=== PATIENT | female | born 1985 | race American Indian/Alaskan Native ===

== ENCOUNTER 2017-07-10 16:40 | Emergency (ER) | payer MEDICAID, OTHER ==
[2017-07-10 16:40] VITALS: BMI 38.9
[2017-07-10 16:59] VITALS: RESP 20
[2017-07-10] MEDS ORDERED: Sodium Chloride 0.9% 1,000 ML IV ONE (17:22)
[2017-07-10 17:47] LABS: BASO # 0.1 K/uL (0.0-0.2); BASO % 0.6 % (0.0-2.0); EOS # 0.1 K/uL (0.0-0.7); EOS % 0.9 % (0.0-4.0); HEMATOCRIT 32.6 % (34.0-47.0); LYMPH # 4.2 K/uL (1.0-4.3); LYMPH % 26.6 % (20.0-40.0); MEAN CELL VOLUME 78.1 fL (81.0-99.0); MEAN CORPUSCULAR HEMOGLOBIN 25.9 pg (27.0-31.0); MEAN CORPUSCULAR HGB CONC 33.2 g/dL (33.0-37.0); MEAN PLATELET VOLUME 8.4 fL (7.2-11.7); RED CELL DISTRIBUTION WIDTH 16.7 % (11.5-14.5); WHITE BLOOD COUNT 15.7 K/uL (4.8-10.8)
[2017-07-10 17:56] LABS: CHLORIDE 98 mmol/L (98-107); SODIUM 131 mmol/L (132-148)
[2017-07-10 17:58] LABS: GFR AFRICAN-AMERICAN > 60
[2017-07-10 17:59] LABS: ALKALINE PHOSPHATASE 71 U/L (38-126); ALT/SGPT 26 U/L (9-52); AST/SGOT 18 U/L (14-36); BILIRUBIN,TOTAL 0.6 mg/dL (0.2-1.3); BLOOD UREA NITROGEN 6 mg/dL (7-17); CARBON DIOXIDE 23 mmol/L (22-30); GLUCOSE,RANDOM 105 mg/dL (65-105); TOTAL PROTEIN 7.4 g/dL (6.3-8.3)
--- NOTE | 2017-07-10 18:31 | C.PDOC ---
History Of Present Illness 32 yr old female presents to the ER with complaints of intermittent vomiting, diarrhea and mild superpubic pain for the past 1 week. Patient states the vomiting and diarrhea are non bilious and non bloody. Patient is a , states LMP was approximately March 12. Patient states she has a history of elevated blood pressure towards the end of her last . Patient also reports of mild headache, which she took Tylenol for last night. Patient states she has been eating and drinking normally. Denies fever, chills, chest pain, SOB , dysuria, incontinence, hematuria, blood in stool, weakness or numbness. Time Seen by Provider: 07/10/17 17:09 Chief Complaint (Nursing): GI Problem History Per: Patient History/Exam Limitations: no limitations Onset/Duration Of Symptoms: Days Past Medical History Reviewed: Historical Data, Nursing Documentation, Vital Signs Vital Signs: Last Vital Signs Temp 98 F 07/10/17 20:54 Pulse 74 07/10/17 20:54 Resp 20 07/10/17 20:54 BP 137/62 07/10/17 20:54 Pulse Ox 96 07/10/17 20:54 - Medical History PMH: Asthma, HTN (gestational) - [facility] Procedures APPLICATION OF SPLINT (06/02/07) DELIVERY OF PRODUCTS OF CONCEPTION, EXTERNAL APPROACH (08/27/16) Family History: States: No Known Family Hx - Social History Hx Tobacco Use: No Hx Alcohol Use: No Hx Substance Use: No - Immunization History Hx Tetanus Toxoid Vaccination: No Hx Influenza Vaccination: No Hx Pneumococcal Vaccination: No Review Of Systems Except As Marked, All Systems Reviewed And Found Negative. Constitutional: Negative for: Fever, Chills Cardiovascular: Negative for: Chest Pain Respiratory: Negative for: Shortness of Breath Gastrointestinal: Positive for: Nausea, Vomiting, Abdominal Pain (Superpubic), Diarrhea Genitourinary: Negative for: Dysuria, Incontinence, Hematuria Neurological: Positive for: Headache (Mild). Negative for: Weakness, Numbness Physical Exam - Physical Exam Appears: Non-toxic, No Acute Distress Skin: Warm, Dry, No Rash Head: Atraumatic, Normacephalic Oral Mucosa: Moist Chest: Symmetrical, No Tenderness Cardiovascular: Rhythm Regular, No Murmur Respiratory: Normal Breath Sounds, No Rales, No Rhonchi, No Wheezing Gastrointestinal/Abdominal: Soft, Tenderness (Minimal superpubic), No Guarding, No Rebound Extremity: Normal ROM, No Swelling Neurological/Psych: Oriented x3, Normal Speech, Normal Motor ED Course And Treatment - Laboratory Results Result Diagrams: 07/10/17 17:43 07/10/17 17:43 O2 Sat by Pulse Oximetry: 99 (RA) Pulse Ox Interpretation: Normal Against Medical Advice - AMA Patient Left Against Medical Advice: The patient declines admission to the hospital and wishes to leave the Emergency Department. This action is against my medical advice. This decision was made with informed refusal. The patient was told that admission to the hospital is necessary. Explanation of the reasons why were discussed. The risks of leaving were explained to the patient and include, but are not limited to, worsening of known or currently unknown conditions, permanent disability and from undiagnosed or untreated conditions. The patient has the capacity to make this informed decision and understands my explanation of the current medical problem and risks of leaving. The patient voluntarily accepts these risks and signed an AMA form documenting our conversation. The patient was given the opportunity to ask questions and reconsider. The patient was encouraged to return to the Emergency Department at any time for further care. ABOVE AMA WAS WRITTEN IN ERROR. PATIENT WAS DISCHARGED. Medical Decision Making Medical Decision Making: PLAN: * US - Transvaginal * CBC * CMP * Urinalysis * Tylenol PO * Sodium Chloride IV Disposition - Disposition Referrals: Shayne Mortensen, [Non-Staff] - Disposition: HOME/ ROUTINE Disposition Time: 20:30 Condition: GOOD Additional Instructions: Thank you for letting us take care of you today. Your provider was Dr. Trujillo. You were treated for abdominal pain in . The emergency medical care you received today was directed at your acute symptoms. If you were prescribed any medication, please fill it and take as directed. It may take several days for your symptoms to resolve. Return to the Emergency Department if your symptoms worsen, do not improve, or if you have any other problems. Please contact your doctor or call one of the physicians/clinics you have been referred to that are listed on the Patient Visit Information form that is included in your discharge packet. Bring any paperwork you were given at discharge with you along with any medications you are taking to your follow up visit. Our treatment cannot replace ongoing medical care by a primary care provider (PCP) outside of the emergency department. Thank you for allowing the [facility] team to be part of your care today. Follow up with your [facility] doctor in 3-4 days for re-evaluation and further management. Prescriptions: Vit No.126/Iron/Folic [Classic Tablet] 1 each PO DAILY #30 tablet Instructions: at 15 to 18 Weeks (ED) Forms: [employer] ([place]ese) - Clinical Impression Clinical Impression: Abdominal pain during - Scribe Statement The provider has reviewed the documentation as recorded by the Lissethibjose antonio Freire Provider Attestation: All medical record entries made by the Lissethibjose antonio were at my direction and personally dictated by me. I have reviewed the chart and agree that the record accurately reflects my personal performance of the history, physical exam, medical decision making, and the department course for this patient. I have also personally directed, reviewed, and agree with the discharge instructions and disposition.
[2017-07-10 18:40] LABS: RBC URINE 11 /hpf (0-3); TRANSITIONAL EPITHIAL < 1 /hpf (0-3); URINE BACTERIA RARE (<OCC); URINE BILIRUBIN NEGATIVE (NEGATIVE); URINE BLOOD 1+ (NEGATIVE); URINE COLOR Yellow (YELLOW); URINE GLUCOSE (UA) NORMAL (Normal); URINE KETONE NEGATIVE (NEGATIVE); URINE PROTEIN NEGATIVE (NEGATIVE); URINE UROBILINOGEN NORMAL mg/dL (0.2-1.0); WBC URINE 3 /hpf (0-5)
[2017-07-10 18:42] LABS: URINE LEUKOCYTE ESTERASE NEGATIVE Leu/uL (Negative)
[2017-07-10 20:55] VITALS: BP 137/62; PULSE 74; TEMP 98
[2017-07-10 23:51] VITALS: O2SAT 99
--- NOTE | 2017-07-11 11:22 | US ---
PROCEDURE: OB Pelvic Ultrasound HISTORY: suprapubic pain/tenderness, last menstrual period is reported 04/11/2017 suggesting an intrauterine gestation of 13 weeks 0 days. COMPARISON: None available. FINDINGS: UTERUS: Gestational sac: A single viable intrauterine gestation is identified in cephalic lie with an anterior fundal placenta and average ultrasonic age of 15 weeks 5 days. cardiac tubes recorded 148.2 beats per minute. Positive body motion identified as well. An anterior fundal placenta is identified which is low-lying measuring approximately 1.5 cm from the internal cervical os. There is no associated hemorrhage is evident at this time. No placenta previa. The following biometry was obtained: BPD 3.1 cm corresponds to 15 weeks 5 days. HC 11.9 cm corresponds to 15 weeks 6 days. AC 9.4 cm corresponds to 15 weeks 4 days. FL 1.9 cm corresponds to 15 weeks 5 days. Date of delivery (Ultrasound estimated) : 01/16/2018 A posterior uterine fundal myoma is not completely excluded though this may be a contraction. Follow-up ultrasound is advised. Cervical length measures 3.4 cm. CERVIX: Internal cervical os is closed with cervical length measuring 3.4 cm. No cervical abnormality seen. RIGHT OVARY: Measures 2.1 x 1.7 x 2.6 cm. No mass lesion. Normal flow. LEFT OVARY: Measures 3.5 x 2.8 x 2.8 cm. No solid mass. Normal flow. A probable corpus luteum cyst measures 1.9 x 1.7 x 1.8 cm. FREE FLUID: None. OTHER FINDINGS: None. IMPRESSION: A single viable intrauterine gestation identified with average ultrasonic age of 15 weeks 5 days and positive cardiac activity and body motion as discussed above. A small left ovarian simple cysts identified potentially representing a corpus luteum cyst. A anatomical survey was not upper or performed in this limited obstetric ultrasound exam performed emergently. Further, a low-lying placenta is identified as discussed above for which follow-up ultrasonography is advised. Separate preliminary report provided by Trace esquivel 07/10/2017.
== END 2017-07-10 20:54 | disposition home or self-care (01) ==
LOC: C.ER 16:40
DX: O26.892 Other specified pregnancy related conditions, second trimester (principal); R10.30 Lower abdominal pain, unspecified; Z3A.15 15 weeks gestation of pregnancy
CPT/HCPCS: 76815; 80053; 81001; 83690; 85025; 87086; 96360; 99285; J7040